=== PATIENT | male | born 1940 | race Caucasian/White ===

== ENCOUNTER 2019-05-18 20:15 | Inpatient (IN) ==
[2019-05-18 20:45] LABS: Basophils # 0.1 10*3/uL (0.0-0.2); Basophils % 0.4 % (0.0-0.8); Eosinophils # 0.3 10*3/uL (0.0-0.87); Hematocrit 42.6 VOL% (42.0-52.0); Immature Granulocytes % 0.4 %; Immature Granulocytes Absolute 0.05 #; Lymphocytes # 3.9 10*3/uL (1.4-4.0); Mean Corpuscular HGB Conc 30.5 GM/DL (32-36); Mean Corpuscular Volume 86.6 FL (87-102); Mean Platelet Volume 9.9 FL (9.6-12.0); Neutrophils % 52.2 % (38.7-73.9); Platelet Count 261 T/CUMM (130-400); Red Blood Count 4.92 MC/CUMM (3.8-5.5); Red Cell Distribution Width 17.2 % (9.3-17.3); White Blood Count 11.2 T/CUMM (4-12)
[2019-05-18] MEDS ORDERED: LABETALOL 100 MG/20 ML VIAL IV ONE (20:53)
[2019-05-18 20:55] LABS: Albumin 3.3 G/DL (3.4-5.0); Bilirubin,Total 0.6 MG/DL (0.2-1.0); Calcium 8.5 MG/DL (8.5-10.1); Osmolality,Calculated 282.5 MOS/KG (273-304); Total Protein 7.8 G/DL (6.4-8.3)
[2019-05-18] MEDS ORDERED: LABETALOL 20 MG/4 ML SYRINGE IV STA (20:55)
[2019-05-18] MEDS ORDERED: niCARdipine 25 MG/10 ML VIAL IV ONE ×2 (20:56→21:00)
[2019-05-18 21:01] LABS: PT Patient Result 10.5 SECS; Partial Thromboplastin Time 31.7 SECS (0-40)
[2019-05-18] MEDS ORDERED: niCARdipine INJ 25 MG in SODIUM CHLORIDE 0.9% 240 ML IV PRN (21:05)
[2019-05-18] MEDS ORDERED: ONDANSETRON 4 MG/2 ML VIAL IV PRN (22:10)
[2019-05-19 04:13] VITALS: BP 159/84
== END 2019-05-19 04:25 | disposition expired | DRG 65 ==
LOC: EDUNIT# → EDBD → N.ED 20:15 → N.EDINP 22:10 → N.5E 23:48
PROVIDERS: ADMIT Internal Medicine; ATTEND Internal Medicine